=== PATIENT | male | born 1955 | race Caucasian/White ===

== ENCOUNTER 2023-10-29 13:09 | Emergency (ER) | payer OTHER, SELFPAY ==
[2023-10-29 13:29] VITALS: BP 164/87; PULSE 71; RESP 20; TEMP 36.6; O2SAT 95; BMI 35.3
--- NOTE | 2023-11-01 11:18 | W.ED.CHARTNO ---
ED Chart Note Chart Note Details Date: 10/29/23 Details: Patient was not seen by a provider prior to refusal of service
== END 2023-10-29 13:43 | disposition home or self-care (01) ==
PROVIDERS: Emergency Provider Student in an Organized Health Care Education/Training Program; PCP Family Medicine
DX: Z53.21 Procedure and treatment not carried out due to patient leaving prior to being seen by health care provider (principal)